=== PATIENT | male | born 1955 | race African-American/Black ===

== ENCOUNTER 2021-07-01 18:12 | Inpatient (IN) | payer MEDICARE, BC ==
[~2021-07-01] VITALS: Ht 170.2 cm; Wt 98.4 kg
[2021-07-01] MEDS ORDERED: SODIUM CHLORIDE 0.9% 1,000 ML IV ONE (19:00)
[2021-07-01 21:34] LABS: HEMATOCRIT. 49.4 % (42.0-52.0); HEMOGLOBIN. 16.3 g/dL (14.0-18.0); MEAN CORPUSCULAR VOLUME 93.8 fL (80.0-94.0); MEAN PLATELET VOLUME 8.5 fl (7.4-10.4); PLATELET 227 x1000/uL (130-400); RED BLOOD CELL COUNT 5.27 mill/uL (4.7-6.1); RED CELL DISTRIBUTION WIDTH 14.4 % (11.6-14.6)
[2021-07-01 21:42] LABS: CHLORIDE 120 mEq/L (98-107)
[2021-07-01 21:51] LABS: CREATINE KINASE 602 IU/L (39-308)
[2021-07-01] MEDS ORDERED: SODIUM CHLORIDE 0.9% 1000ML BAG (SEPSIS BOLUS) IV NR (22:15)
[2021-07-01] MEDS ORDERED: PIPERACILLIN/TAZ 3.375G PREMIX 50 ML IV NR (22:15)
[2021-07-01] MEDS ORDERED: VANCOMYCIN 1GM PMX (XELLIA) 200 ML IV NR (22:30)
[2021-07-01 23:28] LABS: PLATELET ESTIMATE NORMAL
[2021-07-02 11:56] VITALS: BP 120/76
[2021-07-02] MEDS ORDERED: DEXTROSE 50% WATER 50ML SYRINGE IV PRN (12:15)
[2021-07-02] MEDS: BLOOD SUGAR DIAGNOSTIC STRIP TEST SCH ×3 (12:24→21:00)
[2021-07-02] MEDS: INSULIN LISPRO 100 UNITS/ML SUBCUT SCH ×3 (12:24→22:46)
[2021-07-02] MEDS: SODIUM CHLORIDE 0.45% 1,000 ML IV SCH (12:36)
[2021-07-02 13:43] LABS: CLARITY URINE CLOUDY (CLEAR); COLOR URINE YELLOW (YELLOW); KETONES URINE NEGATIVE (NEGATIVE); LEUKOCYTE ESTERASE URINE 2+ (NEGATIVE); NITRITE URINE NEGATIVE (NEGATIVE); OCCULT BLOOD URINE 2+ (NEGATIVE); PROTEIN URINE NEGATIVE (NEGATIVE); SPECIFIC GRAVITY URINE 1.016 (1.005-1.030); UROBILINOGEN URINE 0.2 E.U./dL (0.2-1.0)
[2021-07-02 14:45] VITALS: BP 120/76
[2021-07-02] MEDS ORDERED: METF500T60 MT (15:19)
[2021-07-02] MEDS ORDERED: LISI-186 PO (15:20)
[2021-07-02 16:00] VITALS: BP 105/70
[2021-07-02] MEDS ORDERED: INFLUENZA VACCINE 05/PF 0.5 ML SYRINGE IM ONE (16:00)
[2021-07-02 20:00] VITALS: BP 123/55
[2021-07-02 20:38] LABS: BASOPHILS % 0.2 % (0.0-2.0); EOSINOPHILS % 3.4 % (0.0-5.0); HEMATOCRIT. 39.9 % (42.0-52.0); HEMOGLOBIN. 13.2 g/dL (14.0-18.0); LYMPHOCYTES % 16.7 % (20.0-50.0); MEAN CORPUSCULAR HEMOGLOBIN 30.5 pg (28.0-32.0); MEAN PLATELET VOLUME 8.8 fl (7.4-10.4); MONOCYTES % 14.1 % (2.0-8.0); NEUTROPHILS % 65.6 % (40.0-76.0); PLATELET 191 x1000/uL (130-400); RED BLOOD CELL COUNT 4.34 mill/uL (4.7-6.1); RED CELL DISTRIBUTION WIDTH 14.2 % (11.6-14.6)
[2021-07-02 20:48] LABS: INR 1.1; PROTHROMBIN TIME 11.4 sec (9.6-11.0)
[2021-07-02 20:59] LABS: CHLORIDE 115 mEq/L (98-107)
[2021-07-02 21:07] LABS: PHOSPHORUS 2.6 mg/dL (2.5-4.9)
[2021-07-03] VITALS (7 sets, daily range): BP systolic 119–153; BP diastolic 70–97
[2021-07-03] MEDS: SODIUM CHLORIDE 0.45% 1,000 ML IV SCH ×2 (04:39→18:12)
[2021-07-03] MEDS: BLOOD SUGAR DIAGNOSTIC STRIP TEST SCH ×4 (07:10→20:05)
[2021-07-03 07:21] LABS: BASOPHILS % 0.3 % (0.0-2.0); EOSINOPHILS % 3.2 % (0.0-5.0); HEMATOCRIT. 39.2 % (42.0-52.0); MEAN CORPUSCULAR HEMOGLOBIN 30.2 pg (28.0-32.0); MEAN CORPUSCULAR VOLUME 91.5 fL (80.0-94.0); MEAN PLATELET VOLUME 8.7 fl (7.4-10.4); NEUTROPHILS % 65.5 % (40.0-76.0); PLATELET 182 x1000/uL (130-400); RED BLOOD CELL COUNT 4.28 mill/uL (4.7-6.1); RED CELL DISTRIBUTION WIDTH 13.6 % (11.6-14.6)
[2021-07-03 07:38] LABS: CHLORIDE 117 mEq/L (98-107)
[2021-07-03] MEDS: INSULIN LISPRO 100 UNITS/ML SUBCUT SCH ×4 (07:40→21:37)
[2021-07-03] MEDS ORDERED: CEPHALEXIN 250 MG/5 ML 100ML PO SCH (18:00)
[2021-07-03] MEDS: CEPHALEXIN 250MG/5ML ORAL SYRINGE PO SCH (18:11)
[2021-07-04] MEDS: CEPHALEXIN 250MG/5ML ORAL SYRINGE PO SCH ×5 (02:22→23:54)
[2021-07-04 04:05] VITALS: BP 149/84
[2021-07-04] MEDS: BLOOD SUGAR DIAGNOSTIC STRIP TEST SCH ×4 (05:26→20:07)
[2021-07-04] MEDS: INSULIN LISPRO 100 UNITS/ML SUBCUT SCH ×4 (06:02→20:28)
[2021-07-04 08:00] VITALS: BP 133/91
[2021-07-04] MEDS: SODIUM CHLORIDE 0.45% 1,000 ML IV SCH ×3 (08:43→22:31)
[2021-07-04 12:00] VITALS: BP 143/89
[2021-07-04 12:12] LABS: HEMATOCRIT 38.2 % (42.0-52.0); HEMOGLOBIN 12.8 g/dL (14.0-18.0); MEAN CORPUSCULAR HEMOGLOBIN 29.9 pg (28.0-32.0); MEAN CORPUSCULAR VOLUME 89.7 fL (80.0-94.0); PLATELET 158 x1000/uL (130-400); RED BLOOD CELL COUNT 4.26 mill/uL (4.7-6.1); RED CELL DISTRIBUTION WIDTH 13.1 % (11.6-14.6)
[2021-07-04 12:20] LABS: CHLORIDE 113 mEq/L (98-107)
[2021-07-04 16:00] VITALS: BP 119/86
[2021-07-04] MEDS ORDERED: INSULIN LISPRO 100 UNITS/ML SUBCUT ONE (20:21)
[2021-07-04 20:30] VITALS: BP 152/86
[2021-07-05] VITALS: BP 150/85
[2021-07-05 04:00] VITALS: BP 131/77
[2021-07-05] MEDS: BLOOD SUGAR DIAGNOSTIC STRIP TEST SCH ×4 (05:12→21:10)
[2021-07-05] MEDS: CEPHALEXIN 250MG/5ML ORAL SYRINGE PO SCH (05:33)
[2021-07-05] MEDS ORDERED: INSULIN LISPRO 100 UNITS/ML SUBCUT ONE (05:43)
[2021-07-05] MEDS: INSULIN LISPRO 100 UNITS/ML SUBCUT SCH ×4 (05:46→21:10)
[2021-07-05 08:00] VITALS: BP 142/88
[2021-07-05] MEDS ORDERED: METF500T60 MT (11:12)
[2021-07-05] MEDS ORDERED: LISI-186 PO (11:12)
[2021-07-05 12:00] VITALS: BP 138/86
[2021-07-05] MEDS: CEPHALEXIN 250MG CAPSULE PO SCH ×2 (12:54→17:58)
[2021-07-05 16:00] VITALS: BP 140/87
[2021-07-05 20:00] VITALS: BP 167/97
[2021-07-05] MEDS ORDERED: CLONIDINE 0.1MG TABLET PO PRN (21:00)
[2021-07-05] MEDS: LISINOPRIL 10MG TABLET PO SCH (21:55)
[2021-07-05] MEDS: ATORVASTATIN CALCIUM 10MG TABLET PO SCH (21:55)
[2021-07-06] VITALS: BP 124/65
[2021-07-06] MEDS: CEPHALEXIN 250MG CAPSULE PO SCH ×4 (02:41→18:00)
[2021-07-06 04:00] VITALS: BP 138/94
[2021-07-06] MEDS: INSULIN LISPRO 100 UNITS/ML SUBCUT SCH ×4 (06:08→22:27)
[2021-07-06] MEDS: BLOOD SUGAR DIAGNOSTIC STRIP TEST SCH ×4 (06:08→21:00)
[2021-07-06 08:00] VITALS: BP 116/76
[2021-07-06] MEDS: LISINOPRIL 10MG TABLET PO SCH (09:07)
[2021-07-06] MEDS: SODIUM CHLORIDE 0.45% 1,000 ML IV SCH (11:56)
[2021-07-06 12:00] VITALS: BP 124/80
[2021-07-06 16:00] VITALS: BP 105/60
[2021-07-06 20:00] VITALS: BP 135/87
[2021-07-06] MEDS: ATORVASTATIN CALCIUM 10MG TABLET PO SCH (22:26)
[2021-07-07] VITALS: BP 131/84
[2021-07-07] MEDS: CEPHALEXIN 250MG CAPSULE PO SCH ×4 (00:43→18:23)
[2021-07-07] MEDS: SODIUM CHLORIDE 0.45% 1,000 ML IV SCH ×2 (00:44→14:19)
[2021-07-07 04:00] VITALS: BP 141/81
[2021-07-07] MEDS: BLOOD SUGAR DIAGNOSTIC STRIP TEST SCH ×4 (06:03→20:54)
[2021-07-07] MEDS: INSULIN LISPRO 100 UNITS/ML SUBCUT SCH ×4 (06:24→20:53)
[2021-07-07 08:00] VITALS: BP 112/77
[2021-07-07] MEDS: LISINOPRIL 10MG TABLET PO SCH (10:40)
[2021-07-07 12:00] VITALS: BP 112/77
[2021-07-07 16:00] VITALS: BP 112/77
[2021-07-07 20:00] VITALS: BP 144/86
[2021-07-07] MEDS: ATORVASTATIN CALCIUM 10MG TABLET PO SCH (20:52)
[2021-07-08] VITALS: BP 113/70
[2021-07-08] MEDS: CEPHALEXIN 250MG CAPSULE PO SCH ×4 (00:22→17:32)
[2021-07-08] MEDS: SODIUM CHLORIDE 0.45% 1,000 ML IV SCH (02:08)
[2021-07-08 04:00] VITALS: BP 120/80
[2021-07-08] MEDS: BLOOD SUGAR DIAGNOSTIC STRIP TEST SCH ×4 (06:11→21:31)
[2021-07-08] MEDS: INSULIN LISPRO 100 UNITS/ML SUBCUT SCH ×4 (06:11→21:30)
[2021-07-08 08:00] VITALS: BP 121/75
[2021-07-08] MEDS: LISINOPRIL 10MG TABLET PO SCH (09:24)
[2021-07-08 12:00] VITALS: BP 117/76
[2021-07-08] MEDS ORDERED: ATOR10TA PO (12:56)
[2021-07-08] MEDS: METFORMIN HCL 500MG TABLET PO SCH (17:32)
[2021-07-08 20:00] VITALS: BP 129/69
[2021-07-08] MEDS: ATORVASTATIN CALCIUM 10MG TABLET PO SCH (21:31)
[2021-07-09] VITALS: BP 144/78
[2021-07-09 04:00] VITALS: BP 134/84
[2021-07-09] MEDS: BLOOD SUGAR DIAGNOSTIC STRIP TEST SCH ×4 (06:28→21:59)
[2021-07-09] MEDS: INSULIN LISPRO 100 UNITS/ML SUBCUT SCH ×4 (06:28→21:00)
[2021-07-09 08:00] VITALS: BP 108/84
[2021-07-09] MEDS: LISINOPRIL 10MG TABLET PO SCH (09:00)
[2021-07-09] MEDS: METFORMIN HCL 500MG TABLET PO SCH ×2 (09:01→17:47)
[2021-07-09 12:00] VITALS: BP 98/68
[2021-07-09 16:00] VITALS: BP 105/78
[2021-07-09 20:00] VITALS: BP 131/81
[2021-07-09] MEDS: ATORVASTATIN CALCIUM 10MG TABLET PO SCH (21:59)
[2021-07-10] VITALS: BP 112/85
[2021-07-10 04:00] VITALS: BP 137/54
[2021-07-10] MEDS: INSULIN LISPRO 100 UNITS/ML SUBCUT SCH ×4 (05:34→21:54)
[2021-07-10] MEDS: BLOOD SUGAR DIAGNOSTIC STRIP TEST SCH ×4 (05:34→21:57)
[2021-07-10] MEDS: METFORMIN HCL 500MG TABLET PO SCH ×2 (05:36→17:08)
[2021-07-10 08:00] VITALS: BP 123/89
[2021-07-10] MEDS: LISINOPRIL 10MG TABLET PO SCH (09:25)
[2021-07-10 12:00] VITALS: BP 121/80
[2021-07-10 12:33] LABS: HEMATOCRIT 38.5 % (42.0-52.0); HEMOGLOBIN 12.8 g/dL (14.0-18.0); MEAN CORPUSCULAR HEMOGLOBIN 29.8 pg (28.0-32.0); MEAN CORPUSCULAR VOLUME 89.7 fL (80.0-94.0); PLATELET 205 x1000/uL (130-400); RED BLOOD CELL COUNT 4.29 mill/uL (4.7-6.1)
[2021-07-10 13:04] LABS: CHLORIDE 106 mEq/L (98-107)
[2021-07-10 16:40] VITALS: BP 111/64
[2021-07-10 20:00] VITALS: BP 142/80
[2021-07-10] MEDS ORDERED: ENOXAPARIN 30MG/0.3ML SYR SUBCUT SCH (21:00)
[2021-07-10] MEDS: ATORVASTATIN CALCIUM 10MG TABLET PO SCH (21:57)
[2021-07-11] VITALS: BP 119/87
[2021-07-11 04:00] VITALS: BP 113/80
[2021-07-11] MEDS: BLOOD SUGAR DIAGNOSTIC STRIP TEST SCH ×2 (05:37→12:23)
[2021-07-11] MEDS: INSULIN LISPRO 100 UNITS/ML SUBCUT SCH ×2 (05:56→12:42)
[2021-07-11 08:00] VITALS: BP 107/66
[2021-07-11] MEDS: METFORMIN HCL 500MG TABLET PO SCH (08:40)
[2021-07-11] MEDS: LISINOPRIL 10MG TABLET PO SCH (08:41)
[2021-07-11 12:00] VITALS: BP 112/65
[2021-07-11 13:44] VITALS: BP 112/65
[2021-07-11 16:00] VITALS: BP 121/79
== END 2021-07-11 18:15 | DRG 871 ==
LOC: ER 18:12 → MICUSO 23:45 → EDBEDREQTM 07-02 00:27 → EDBEDREQ 07-02 00:27 → EDBEDREQDT 07-02 00:27 → 8WST 07-02 11:10
PROVIDERS: ADMIT Family Medicine; ATTEND Family Medicine
DX: A41.9 Sepsis, unspecified organism (principal); N17.0 Acute kidney failure with tubular necrosis; E87.0 Hyperosmolality and hypernatremia; I69.351 Hemiplegia and hemiparesis following cerebral infarction affecting right dominant side; R64 Cachexia; E78.00 Pure hypercholesterolemia, unspecified; E11.9 Type 2 diabetes mellitus without complications; E78.5 Hyperlipidemia, unspecified; I10 Essential (primary) hypertension; Z79.4 Long term (current) use of insulin
CPT/HCPCS: 36415; 71045; 76770; 80048; 80053; 80076; 81003; 82550; 82962; 83036; 83605; 83735; 83880; 84100; 84145; 84484; 85025; 85027; 90686; 93005; 97110; 97162; 97166; 97530; 97535; 99291; C1893; J1650; J1815; J2543; J3370; J7030